=== PATIENT | female | born 2000 | race Caucasian/White ===

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

== ENCOUNTER → 2021-03-17 | Outpatient (CLI) | payer OTHER ==
[2021-03-18 14:13] LABS: VARICELLA ZOSTER IGG 477 index (Immune >165)
== END ==
LOC: LAB 13:10
PROVIDERS: Pediatrics
DX: Z00.00 Encounter for general adult medical examination without abnormal findings (principal)
CPT/HCPCS: 36415; 86787

== ENCOUNTER → 2021-04-30 | Outpatient (CLI) | payer OTHER | LOC: US 10:00 | DX: N63.25 Unspecified lump in the left breast, overlapping quadrants (principal) | CPT/HCPCS: 76642-RT ==